=== PATIENT | male | born 1970 | race Caucasian/White ===

== ENCOUNTER 2020-12-06 17:57 | Emergency (ER) | payer BC ==
[~2020-12-06] VITALS: Ht 175.3 cm; Wt 77.1 kg
[2020-12-06] MEDS ORDERED: LISINOPRIL10 MG PO (18:04)
[2020-12-06] MEDS ORDERED: KEFLEX500 M1 PO (19:18)
[2020-12-06 19:25] VITALS: BP 165/111
== END 2020-12-06 19:25 | disposition home or self-care (01) ==
LOC: M.ERS 17:57
DX: S51.811A Laceration without foreign body of right forearm, initial encounter (principal); I10 Essential (primary) hypertension; Z79.899 Other long term (current) drug therapy; W26.0XXA Contact with knife, initial encounter; Y93.89 Activity, other specified; Y92.89 Other specified places as the place of occurrence of the external cause; Y99.8 Other external cause status

== ENCOUNTER 2021-07-14 17:47 | Emergency (ER) | payer BC ==
[~2021-07-14] VITALS: Ht 175.3 cm; Wt 74.8 kg
[~2021-07-14 17:47] MED LIST: KEFLEX500 M1 PO; LISINOPRIL10 MG PO
[2021-07-14] MEDS ORDERED: HYDROCODON-ACE1 EAC8 PO (20:50)
[2021-07-14] MEDS ORDERED: FLEXERIL PO (20:50)
[2021-07-14] MEDS ORDERED: PREDNISONE50 MG PO (20:50)
[2021-07-14 21:08] VITALS: BP 138/92
== END 2021-07-14 21:08 | disposition home or self-care (01) ==
LOC: M.ERS 17:47
DX: M54.16 Radiculopathy, lumbar region (principal); I10 Essential (primary) hypertension; Z79.899 Other long term (current) drug therapy